=== PATIENT | male | born 1985 | race Two or more races ===

== ENCOUNTER 2023-05-25 03:28 | Emergency (ER) | payer BC ==
[2023-05-25] MEDS ORDERED: Ondansetron 4 MG/2 ML SDV IVPUSH ONE (04:08)
[2023-05-25] MEDS ORDERED: Lactated Ringers 1,000 ML IV ONE (04:08)
[2023-05-25 04:41] LABS: BASOPHILS PERCENT AUTO 0.5 % (0.0-1.0); EOSINOPHILS ABSOLUTE AUTO 0.1 K/mm3 (0.0-0.4); EOSINOPHILS PERCENT AUTO 2.2 % (0.0-6.0); HEMATOCRIT 45.1 % (42.0-52.0); IMMATURE GRAN ABSOLUTE AUTO 0.01 K/mm3 (0.00-0.05); IMMATURE GRAN PERCENT AUTO 0.2 % (0.0-0.4); LYMPHOCYTES ABSOLUTE AUTO 1.7 K/mm3 (1.0-4.8); LYMPHOCYTES PERCENT AUTO 30.9 % (24.0-44.0); MEAN CORPUSCULAR HEMOGLOBIN 26.1 pg (28.0-32.0); MEAN CORPUSCULAR HGB CONC 33.3 g/dl (32.0-36.0); MEAN CORPUSCULAR VOLUME 78.6 fl (83.0-99.0); MEAN PLATELET VOLUME 10.6 fl (9.4-12.4); MONOCYTES ABSOLUTE AUTO 0.4 K/mm3 (0.0-0.8); MONOCYTES PERCENT AUTO 6.3 % (0.0-8.0); NEUTROPHILS ABSOLUTE AUTO 3.3 K/mm3 (1.8-7.7); NEUTROPHILS PERCENT AUTO 59.9 % (41.0-71.0); PLATELET COUNT,PLT 191 K/mm3 (150-400); RED BLOOD CELL COUNT 5.74 M/mm3 (4.52-5.90); WHITE BLOOD CELL COUNT,WBC 5.53 K/mm3 (3.9-11.3)
[2023-05-25 05:09] LABS: ALBUMIN 3.7 g/dl (3.4-5.0); ANION GAP 13.9 (5-15); BILIRUBIN TOTAL 0.5 mg/dL (0.2-1.0); CREATININE 0.9 mg/dL (0.7-1.3); EST CRCL DRUG DOSING (CG) 116.2 mL/min; POTASSIUM,K 3.9 mEq/L (3.5-5.1); PROTEIN TOTAL,TP 7.3 g/dl (6.4-8.2)
[2023-05-25 05:19] LABS: CORONAVIRUS COVID-19 NAA NEGATIVE (NEGATIVE); INFLUENZA A NAA NEGATIVE (NEGATIVE)
[2023-05-25] MEDS ORDERED: Ondansetron 4 MG Tab.DIS PO ONE (06:19)
== END 2023-05-25 06:40 | disposition home or self-care (01) ==
LOC: JD.ED 03:28
DX: K52.9 Noninfective gastroenteritis and colitis, unspecified (principal); I10 Essential (primary) hypertension; E11.9 Type 2 diabetes mellitus without complications; E78.00 Pure hypercholesterolemia, unspecified; Z79.84 Long term (current) use of oral hypoglycemic drugs; Z79.899 Other long term (current) drug therapy; Z79.4 Long term (current) use of insulin; Z20.822 Contact with and (suspected) exposure to COVID-19
CPT/HCPCS: 0240U; 36415; 80053; 83690; 85025; 96361; 96374; 99284; A9270; J2405; J7120; 99283

== ENCOUNTER 2024-01-21 18:24 | Emergency (ER) | payer BC ==
[2024-01-21 18:53] LABS: BASOPHILS PERCENT AUTO 0.7 % (0.0-1.0); EOSINOPHILS ABSOLUTE AUTO 0.1 K/mm3 (0.0-0.4); EOSINOPHILS PERCENT AUTO 1.9 % (0.0-6.0); HEMATOCRIT 42.9 % (42.0-52.0); HEMOGLOBIN 14.3 gm/dl (14.0-18.0); LYMPHOCYTES ABSOLUTE AUTO 2.1 K/mm3 (1.0-4.8); LYMPHOCYTES PERCENT AUTO 36.4 % (24.0-44.0); MEAN CORPUSCULAR HEMOGLOBIN 26.6 pg (28.0-32.0); MEAN CORPUSCULAR HGB CONC 33.3 g/dl (32.0-36.0); MEAN CORPUSCULAR VOLUME 79.9 fl (83.0-99.0); MEAN PLATELET VOLUME 10.9 fl (9.4-12.4); MONOCYTES ABSOLUTE AUTO 0.4 K/mm3 (0.0-0.8); MONOCYTES PERCENT AUTO 6.2 % (0.0-8.0); NEUTROPHILS ABSOLUTE AUTO 3.2 K/mm3 (1.8-7.7); NEUTROPHILS PERCENT AUTO 54.8 % (41.0-71.0); PLATELET COUNT,PLT 197 K/mm3 (150-400); RED BLOOD CELL COUNT 5.37 M/mm3 (4.52-5.90); WHITE BLOOD CELL COUNT,WBC 5.85 K/mm3 (3.9-11.3)
[2024-01-21] MEDS: Sodium Chloride 0.9% 1,000 ML IV STA (19:14)
[2024-01-21] MEDS: Sodium Chloride 0.9% 10 ML Syringe FLUSH PRN (19:14)
[2024-01-21 19:15] LABS: ALBUMIN 3.5 g/dl (3.4-5.0); ANION GAP 12.9 (5-15); BILIRUBIN TOTAL 0.3 mg/dL (0.2-1.0); BUN/CREATININE RATIO 18.9 (14-18); CREATININE 0.9 mg/dL (0.7-1.3); EST CRCL DRUG DOSING (CG) 116.2 mL/min; POTASSIUM,K 3.9 mEq/L (3.5-5.1)
== END 2024-01-21 20:37 | disposition home or self-care (01) ==
LOC: JD.ED 18:24
DX: R42 Dizziness and giddiness (principal); R51.9 Headache, unspecified; I10 Essential (primary) hypertension; E78.00 Pure hypercholesterolemia, unspecified; E11.9 Type 2 diabetes mellitus without complications; Z86.16 Personal history of COVID-19; Z79.899 Other long term (current) drug therapy; Z79.4 Long term (current) use of insulin
CPT/HCPCS: 36415; 70450; 80053; 82947; 85025; 93005; 96360; 99284; J3490; J7030

== ENCOUNTER 2024-07-20 07:51 | Emergency (ER) | payer BC ==
[2024-07-20] MEDS ORDERED: Sodium Chloride 0.9% 10 ML Syringe FLUSH PRN (08:19)
[2024-07-20] MEDS: Sodium Chloride 0.9% 1,000 ML IV SCH (08:50)
[2024-07-20] MEDS: Ketorolac 30 MG/ML SDV IVPUSH ONE (08:50)
[2024-07-20 08:59] LABS: BASOPHILS ABSOLUTE AUTO 0.1 K/mm3 (0.0-0.2); BASOPHILS PERCENT AUTO 0.3 % (0.0-1.0); EOSINOPHILS ABSOLUTE AUTO 7.9 K/mm3 (0.0-0.4); EOSINOPHILS PERCENT AUTO 41.8 % (0.0-6.0); HEMATOCRIT 42.4 % (42.0-52.0); HEMOGLOBIN 14.8 gm/dl (14.0-18.0); IMMATURE GRAN ABSOLUTE AUTO 0.07 K/mm3 (0.00-0.05); IMMATURE GRAN PERCENT AUTO 0.4 % (0.0-0.4); LYMPHOCYTES ABSOLUTE AUTO 1.1 K/mm3 (1.0-4.8); LYMPHOCYTES PERCENT AUTO 5.8 % (24.0-44.0); MEAN CORPUSCULAR HEMOGLOBIN 26.9 pg (28.0-32.0); MEAN CORPUSCULAR HGB CONC 34.9 g/dl (32.0-36.0); MEAN CORPUSCULAR VOLUME 77.1 fl (83.0-99.0); MEAN PLATELET VOLUME 10.9 fl (9.4-12.4); MONOCYTES ABSOLUTE AUTO 1.1 K/mm3 (0.0-0.8); MONOCYTES PERCENT AUTO 5.9 % (0.0-8.0); NEUTROPHILS ABSOLUTE AUTO 8.7 K/mm3 (1.8-7.7); NEUTROPHILS PERCENT AUTO 45.8 % (41.0-71.0); PLATELET COUNT,PLT 165 K/mm3 (150-400); WHITE BLOOD CELL COUNT,WBC 18.92 K/mm3 (3.9-11.3)
[2024-07-20 09:26] LABS: A/G RATIO 0.8 (1-2); ALBUMIN 3.1 g/dl (3.4-5.0); ANION GAP 13.2 (5-15); BILIRUBIN TOTAL 1.6 mg/dL (0.2-1.0); C-REACTIVE PROTEIN 18.53 mg/dL (<0.30); CALCIUM 8.8 mg/dL (8.5-10.1); EST CRCL DRUG DOSING (CG) 103.54 mL/min; MAGNESIUM 1.5 mg/dL (1.8-2.4); POTASSIUM,K 4.2 mEq/L (3.5-5.1); PROTEIN TOTAL,TP 7.1 g/dl (6.4-8.2)
[2024-07-20 09:55] LABS: APPEARANCE,URINE CLOUDY (Clear); BILIRUBIN,URINE NEGATIVE (Negative); COLOR,URINE YELLOW (Yellow); GLUCOSE,URINE 2+ (Negative); KETONES,URINE 3+ (Negative); LEUKOCYTE ESTERASE,URINE NEGATIVE (Negative); NITRITE,URINE NEGATIVE (Negative); OCCULT BLOOD,URINE 1+ (Negative); PROTEIN,URINE 2+ (Negative)
[2024-07-20 10:07] LABS: BACTERIA,URINE MODERATE /hpf (FEW); MUCUS,URINE MODERATE /hpf (FEW); RBC,URINE 20-30 /hpf (0-5); SQUAMOUS EPITHELIAL CELLS,UR 0-5 /hpf (0-5); WBC,URINE 50-75 /hpf (0-5)
[2024-07-20] MEDS: cefTRIAXone 2 GM Vial IVPUSH ONE (11:30)
== END 2024-07-20 12:10 | disposition home or self-care (01) ==
LOC: JD.ED 07:51
DX: N41.0 Acute prostatitis (principal); I10 Essential (primary) hypertension; E78.00 Pure hypercholesterolemia, unspecified; Z86.16 Personal history of COVID-19; Z79.84 Long term (current) use of oral hypoglycemic drugs; Z79.899 Other long term (current) drug therapy
CPT/HCPCS: 36415; 71045; 74176; 80053; 81001; 82550; 83735; 85025; 86140; 87428; 87651; 96361; 96374; 96375; 99284; J0696; J1885; J7030

== ENCOUNTER 2024-12-11 07:22 | Emergency (ER) | payer BC ==
[2024-12-11] MEDS ORDERED: Sodium Chloride 0.9% 10 ML Syringe FLUSH PRN (07:46)
[2024-12-11 07:55] LABS: BASOPHILS PERCENT AUTO 0.8 % (0.0-1.0); EOSINOPHILS ABSOLUTE AUTO 0.1 K/mm3 (0.0-0.4); EOSINOPHILS PERCENT AUTO 2.2 % (0.0-6.0); HEMATOCRIT 43.8 % (42.0-52.0); HEMOGLOBIN 14.7 gm/dl (14.0-18.0); IMMATURE GRAN ABSOLUTE AUTO 0.01 K/mm3 (0.00-0.05); IMMATURE GRAN PERCENT AUTO 0.2 % (0.0-0.4); LYMPHOCYTES ABSOLUTE AUTO 1.8 K/mm3 (1.0-4.8); LYMPHOCYTES PERCENT AUTO 35.8 % (24.0-44.0); MEAN CORPUSCULAR HEMOGLOBIN 26.9 pg (28.0-32.0); MEAN CORPUSCULAR HGB CONC 33.6 g/dl (32.0-36.0); MEAN CORPUSCULAR VOLUME 80.1 fl (83.0-99.0); MEAN PLATELET VOLUME 10.5 fl (9.4-12.4); MONOCYTES ABSOLUTE AUTO 0.4 K/mm3 (0.0-0.8); MONOCYTES PERCENT AUTO 7.1 % (0.0-8.0); NEUTROPHILS ABSOLUTE AUTO 2.7 K/mm3 (1.8-7.7); NEUTROPHILS PERCENT AUTO 53.9 % (41.0-71.0); PLATELET COUNT,PLT 211 K/mm3 (150-400); RED BLOOD CELL COUNT 5.47 M/mm3 (4.52-5.90); WHITE BLOOD CELL COUNT,WBC 4.95 K/mm3 (3.9-11.3)
[2024-12-11 08:09] LABS: A/G RATIO 1.1 (1-2); ALBUMIN 3.7 g/dl (3.4-5.0); ANION GAP 12.9 (5-15); BILIRUBIN TOTAL 0.5 mg/dL (0.2-1.0); BUN/CREATININE RATIO 18.9 (14-18); CALCIUM 9.2 mg/dL (8.5-10.1); CREATININE 0.9 mg/dL (0.7-1.3); EST CRCL DRUG DOSING (CG) 115.04 mL/min; POTASSIUM,K 3.9 mEq/L (3.5-5.1); PROTEIN TOTAL,TP 7.2 g/dl (6.4-8.2)
[2024-12-11] MEDS: Sodium Chloride 0.9% 10 ML Syringe FLUSH PRN (08:29)
[2024-12-11] MEDS: Iopamidol 612 MG/ML 100 ML Bottle IVPUSH ONE (08:29)
[2024-12-11 08:49] LABS: LACTIC ACID 1.5 mmol/L (0.4-2.0)
== END 2024-12-11 10:01 | disposition home or self-care (01) ==
LOC: JD.ED 07:22
DX: G89.18 Other acute postprocedural pain (principal); E78.00 Pure hypercholesterolemia, unspecified; I10 Essential (primary) hypertension; E11.9 Type 2 diabetes mellitus without complications; Z79.4 Long term (current) use of insulin; Z79.84 Long term (current) use of oral hypoglycemic drugs; Z86.16 Personal history of COVID-19
CPT/HCPCS: 36415; 74177; 80053; 83605; 85025; 99284; Q9967; 99283